=== PATIENT | female | born 1970 | race Caucasian/White ===

== ENCOUNTER → 2016-07-10 | Day surgery (SDC) | payer OTHER ==
[~2016-07-10] VITALS: Ht 157.5 cm; Wt 63.0 kg
[~2016-07-10] MED LIST: BUPIVACAINE-EPI 0.25%-1:200000 50 ML VIAL. ONE; CEFAZOLIN 1GM IVPB FOR OMNI 0 ML IV ONE; CEFAZOLIN 1GM IVPB FOR OMNI 50 ML IV ONE; CEFOXITIN 1 GM IV ONE; DEXAMETHASONE SOD PHOS 20 MG/5 ML VIAL. ONE; ESTROGENS, CONJ VAGINAL CREAM 30GM TUBE. ONE; FENTANYL PF 100 MCG/2 ML VIAL. IV PRN; FENTANYL PF 250 MCG/5 ML VIAL. ONE; GABA-586 PO; HYDROMORPHONE 2 MG/ML VIAL. IV PRN; IV RINGERS,LACTATED 1000ML 1,000 ML IV SCH; LIDOCAINE 1% 1 ML SYRINGE. ID PRN; LIDOCAINE 1%/EPI 1:100,000 20 ML VIAL. ONE; LIDOCAINE 2% PF Vial for OR 5 ML VIAL. ONE; METHYLENE BLUE 1% 1 ML VIAL. ONE; MIDAZOLAM HCL 2 MG/2 ML VIAL. ONE; MORPHINE SULFATE 2 MG/ML DISP.SYRIN. IV PRN; ONDANSETRON PF 4 MG/2 ML VIAL. IV PRN; ONDANSETRON PF 4 MG/2 ML VIAL. ONE; PROCHLORPERAZINE 10 MG/2 ML VIAL. IV PRN; PROPOFOL 0 ML IV ONE; ROCURONIUM 50 MG/5 ML VIAL. ONE; SURGICEL HEMOSTAT 4X8 EACH. ONE; [UNRECOGNIZED DRUG - OTHER] IV ONE
[2016-07-10 06:36] VITALS: BP 115/74
[2016-07-10 06:51] LABS: BASO % 1 % (0-3); EOS % 3 % (0-3); HEMATOCRIT 29.9 % (36.0-47.0); HEMOGLOBIN 9.6 g/dL (12.0-15.5); LYMPH # 2.1 x10^3/uL (1.0-4.8); LYMPH % 36 % (24-48); MEAN CORPUSCULAR HEMOGLOBIN 26 pg (25-35); MEAN CORPUSCULAR HGB CONC 32 g/dL (31-37); MEAN CORPUSCULAR VOLUME 81 fL (79-100); MONO % 12 % (0-9); NEUT % 48 % (31-73); PLATELET COUNT 230 x10^3/uL (140-400); RED BLOOD COUNT 3.69 x10^6/uL (3.50-5.40); RED CELL DISTRIBUTION WIDTH 16.3 % (11.5-14.5); WHITE BLOOD COUNT 5.7 x10^3/uL (4.0-11.0)
[2016-07-10 06:53] LABS: BARBITURATES NEG (NEG); BENZODIAZEPINES NEG (NEG); CANNABINOIDS POS (NEG); COCAINE POS (NEG); METHADONE NEG (NEG); OPIATES NEG (NEG); PHENCYCLIDINE NEG (NEG)
[2016-07-10 06:56] LABS: ETHANOL, URINE NEG (NEG)
== END ==
LOC: SURG 06:02 → MERGE 08:00
PROVIDERS: ATTEND Obstetrics & Gynecology
DX: D25.9 Leiomyoma of uterus, unspecified (principal); Z53.8 Procedure and treatment not carried out for other reasons
CPT/HCPCS: 36415; 85027; 86850; 86900; 86901; G0481; J0690; J0694; J1100; J2250; J2405; J2704; J3010; J3490; Q9968